=== PATIENT | female | born 1985 ===

== ENCOUNTER 2021-07-08 06:10 | Emergency (ER) | payer BC ==
--- OUTSIDE RECORDS SUMMARY | 2021-07-08 06:14 | XMS REPORT | Continuity of Care Document ---
:1985 Author Organization [facility] t Address [address] [place] [address] [address] [place] [address] Care Team Providers Name Role Phone Ariel Chapa Attending Clinician Doctor Unassigned, Name Attending Clinician Unavailable Payers Payer Name Policy Type Policy Number Effective Date Expiration Date S ayanna [facility] [id number] 2018 00:00:00 Problems Condition Condition Condition Status Onset Resolution Last Treating Co mments Source Name Details Category Date Date Treatment Clinician Date Migraine Migraine Disease Active Unive rs without without 06-01 ity of aura and aura and 00:00: [place] without without 00 Medical status status Branch migrainosu migrainosu s, not s, not intractabl intractabl e e Anxious Anxious Disease Active Univers mood mood 3- ity of 00:00: [place] 00 [facility] Sleep Sleep Disease Active Univers disturbanc disturbanc 3 it y of e e 00:00: [address] Allergies, Adverse Reactions, Alerts Allergy Allergy Status Severity Reaction(s) Onset Inactive Treating Comm ents Source Name Type Date Date Clinician NO KNOWN Drug Active Univers ALLERGIE Class ity of S [facility] Social History Social Habit Start Date Stop Date Quantity Comments Source Exposure to Yes [facility] SARS-CoV-2 [facility] (event) Branch Sex Assigned At Universit y of [facility] Alcohol intake 2018-06-22 2018-06-22 University of 00:00:00 00:00:00 [facility] Alcohol Comment 2018-06-01 2018-06-01 social drinker ( Uni versity of 00:00:00 00:00:00 wine ) [facility] Smoking Status Start Date Stop Date Source Never smoker [facility] Medications Ordered Filled Start Stop Current Ordering Indication Dosage Frequency Signature Comments Components Source Medication Medication Date Date Medication? Clinician (SIG) Name Name iohexol 2019- 2020- No 120mL 120 mL, Unive rs (OMNIPAQUE 09-13 Intravenou it y of 350 05:30: 05:10 s, ONCE, 1 [place] BULK-150 00 :00 dose, [place] Medica l mL) 09/14/19 at Branch injection 0030, 120 mL Routine ondansetron 2019- No 4mg 4 mg, Slow Univers (ZOFRAN 09-13 IV Push, ity of (PF)) 05:00: 04:11 ONCE, 1 [place] injection 4 00 :00 dose, [place] Med ical mg 09/14/19 at Branch 0000, JOSE ketorolac 2019-2019- No 30mg 30 mg, Unive rs (TORADOL) 09-13 Slow IV ity of injection 05:00: 04:11 Push, [place] 30 mg 00 :00 ONCE, 1 Medical dose, [place] Branch 09/14/19 at 0000, JOSE
Fa culty member approving Restricted medication : BERNIE MUNSON ketorolac 2019-0 Yes [id number] 10mg Take 1 Un chuck 10 mg 7-09 tablet by ity of tablet 00:00: mouth [place] 00 every 6 Medical (six) Branch hours as needed for Pain (scale 4-6). ondansetron 2019-0 Yes [id number] 8mg Take 1 Univers (ZOFRAN -09 tablet by ity of ODT) 8 mg 00:00: mouth [place] disintegrat 00 every 8 Medic al ing tablet (eight) Branch hours as needed for Nausea and Vomiting (N/V). amitriptyli Yes [id number] 37.5mg Take 1.5 Univers ne 25 mg 4-17 tablets by ity o f tablet 00:00: mouth at [place] 00 bedtime. Medical Branch hydrOXYzine Yes [id number] 25mg Take 1 Univers 25 mg 4-17 tablet by ity of tablet 00:00: mouth [place] 00 every 6 Medical (six) Branch hours as needed for Anxiety. amitriptyli Yes [id number] 37.5mg Take 1.5 Univers ne 25 mg 4-17 tablets by ity o f tablet 00:00: mouth at [place] 00 bedtime. Medical Branch hydrOXYzine Yes [id number] 25mg Take 1 Univers 25 mg 4-17 tablet by ity of tablet 00:00: mouth [place] 00 every 6 Medical (six) Branch hours as needed for Anxiety. norgestimat Yes 1{tbl} Take 1 Un chuck e-ethinyl 3-27 tablet by ity o f estradiol 16:16: mouth [place] 0.18/0.215/ 18 daily. Medica l 0.25 mg-35 Branch mcg (28) tablet norgestimat Yes 1{tbl} Take 1 Un chuck e-ethinyl 3-27 tablet by ity o f estradiol 16:16: mouth [place] 0.18/0.215/ 18 daily. Medica l 0.25 mg-35 Branch mcg (28) tablet Vital Signs Vital Name Observation Time Observation Value Comments Source Systolic blood 2019-09-14 05:00:00 118 mm[Hg] [facility] Diastolic blood 2019-09-14 05:00:00 83 mm[Hg] [facility] Heart rate 2019-09-14 05:00:00 66 /min [facility] Respiratory rate 2019-09-14 05:00:00 18 /min [facility] Oxygen saturation in 2019-09-14 05:00:00 99 /min [facility] Arterial blood by [facility] [place] [facility] Pulse oximetry [place] Body temperature 2019-09-14 03:13:00 36.56 [facility] Body weight 2019-09-14 03:13:00 77.111 kg [facility] BMI 2019-09-14 03:13:00 25.10 kg/m2 [facility] Procedures Procedure Date / Time Performing Clinician Source Performed POCT TEST 2019-09-14 04:11:00 Bernie Munson [facility] LIPASE 2019-09-14 03:41:00 Bernie Munson [facility] COMP. METABOLIC PANEL 2019-09-14 03:41:00 Bernie Munson [facility] ([id number]) [facility] CBC WITH DIFFERENTIAL 2019-09-14 03:41:00 Bernie Munson [facility] URINALYSIS 2019-09-14 03:41:00 Bernie Munson [facility] ASSIGNMENT OF BENEFITS 2019-09-14 03:07:53 Doctor Unassigned, No [facility] NOTICE OF PRIVACY 2019-09-14 03:05:48 Doctor Unassigned, No [facility] CONSENT/REFUSAL FOR 2019-09-14 03:05:36 Doctor Unassigned, No [facility] DIAGNOSIS AND TREATMENT [facility] Encounters Start End Encounter Admission Attending Care Care Encounter Source Date/Time Date/Time Type Type Clinicians Facility Department ID 2021-01-03 Emergency [facility] [id number] Univers 05:39:45 ity of [facility] 2019-09-13 2019-09-14 Emergency ESTELLA Munson [id number] Univers 22:17:46 01:09:00 Bernie Erickson [id number] i ty [facility] [id number] [facility] [id number] [place] [address] Branch 2019-09-13 2019-09-13 Orders Doctor LINDSAY [id number] Univers 00:00:00 00:00:00 Only UnassignedJORGE [id number] ity of [place] [facility] [id number] [facility] [id number] [facility] 009 Branch Results Test Description Test Time Test Comments Results Result Comments Source Urinalysis 2019-09-14 04:36:00 Test Item Value Reference Range Interpretation Comme nts APPEARANCE (test code = Cloudy Clear A 6452148161) COLOR (test code = 7207232921) Yellow Yellow PH (test code = 3370418743) 4.8-8.0 SP GRAVITY (test code = 1.003-1.030 7961666949) GLU U QUAL (test code = Normal Normal 0133305233) BLOOD (test code = 1144117195) Negative Negative INTERFERENCE FROM ASCORBIC ACID MAY CAUSE FALSE NEGATIVE RESULT KETONES (test code = 4586928407) 5 mg/dL Negative A PROTEIN (test code = 2887-8) Negative Negative UROBILIN (test code = Normal Normal 0768966500) BILIRUBIN (test code = Negative Negative 6742456551) NITRITE (test code = 2847274452) Negative Negative LEUK ATILIO (test code = Negative Negative 0452998326) RBC/HPF (test code = 2682579305) See_Comment [Automated message] The system which ge nerated this result transmit royal reference range: 0 - 3 HP F. The reference range was not used to interpret th is result as normal/abnormal . WBC/HPF (test code = 8813133592) See_Comment [Automated message] The system which ge nerated this result transmit royal reference range: 0 - 5 HP F. The reference range was not used to interpret th is result as normal/abnormal . BACTERIA (test code = Few Negative A 5211381006) MUCOUS (test code = 6287987700) Slight Negative LPF A SQ EPITH (test code = HPF 2851160356) CA OXALATE (test code = >182 See_Comment H [Au tomated message] The 4095630659) system which ge nerated this result transmit royal reference range: <=1 HPF. The reference range was not u sed to interpret this result as normal/abnormal . Lab Interpretation (test code = Abnormal 48640-3) [facility] [facility] [id number] 04:11:00 Test Item Value Reference Range Interpretation Comments POCT PREG (test code = 1605) negative On board controls acceptable with present C Line (test code = 3574) POCT PREG LOT # (test code = 3575) [id number] POCT PREG TEST DATE (test 10/05/2020 code = 3576) Lab Interpretation (test code = Normal 34949-8) [facility] [facility] Metabolic [id number] 04:06:00 Test Item Value Reference Range Interpretation Comments NA (test code = 137 mmol/L 135-145 0531006661) K (test code = 3.5 mmol/L 3.5-5 1573639512) CL (test code = 106 mmol/L 98-108 2629486330) CO2 TOTAL (test code = 22 mmol/L 23-31 L 6621700124) AGAP (test code = 2-16 4317210996) BUN (test code = 12 mg/dL 7-23 5130864509) GLUCOSE (test code = 96 mg/dL 70-110 2102421387) CREATININE (test code = 0.91 mg/dL 0.5-1.04 7505465647) TOTAL BILI (test code = 0.5 mg/dL 0.1-1.2 0302548988) CALCIUM (test code = 9.4 mg/dL 8.6-10.6 4526261099) T PROTEIN (test code = 7.4 g/dL 6.3-8.2 5734148264) ALBUMIN (test code = 4.4 g/dL 3.5-5 7618440050) ALK PHOS (test code = 47 U/L 34-122 7462634098) ALTv (test code = 22 U/L 5-35 1742-6) AST(SGOT) (test code = 31 U/L 13-40 6313296028) eGFR Calculation mL/min/1.73m2 (Non-) (test code = 8831183114) eGFR Calculation mL/min/1.73m2 () (test code = 4216060001) CHRIS (test code = CHRIS) Association of Glomerular Filtration Rate (GFR) and Staging of Kidney Disease* + --+ --+ ------+| GFR (mL/min/1.73 m2) ?| With Kidney Damage ?| ?Without Kidney Damage+ --------+ --------+ +| ?>90 ?| ?Stage one ?| ? Normal ?+ ---+ ---+ -------+| ?60-89 ?| ?Stage two ?| ? Decreased GFR ? + --+ --+ ------+| ?30-59 ?| ?Stage three ?| ? Stage three ? + --+ --+ ------+| ?15-29 ?| ?Stage four ? | ? Stage four ?+ ---+ ---+ -------+| ?<15 (or dialysis) ? ?| ?Stage five ? | ? Stage five ?+ ---+ ---+ -------+ *Each stage assumes the associated GFR level has been in effect for at least three months. ?Stages 1 to 5, with or without kidney disease, indicate chronic kidney disease. Notes: Determination of stages one and two (with eGFR >59mL/min/1.73 m2) requires estimation of kidney damage for at least three months as defined by structural or functional abnormalities of the kidney, manifested by either:Pathological abnormalities or Markers of kidney damage (including abnormalities in the composition of the blood or urine or abnormalities in imaging tests). Lab Interpretation Abnormal (test code = 38679-7) [facility] [facility] CenterLip[facility], [id number] 04:06:00 Test Item Value Reference Range Interpretation Comments LIPASE (test code = 7182763066) 41 U/L 0-220 Lab Interpretation (test code = Normal 88860-4) [facility] [facility] WITH [id number] 03:55:00 Test Item Value Reference Range Interpretation Comments WBC (test code = See_Comment [Automated 7390-2) message] The sy stem which generated this result transmitted reference range : 4.30 - 11.10 10*3/?L. The reference range was not used to interpret this result as normal/abnormal . RBC (test code = See_Comment [Automated 789-8) message] The sy stem which generated this result transmitted reference range : 3.93 - 5.25 10*6/?L. The reference range was not used to interpret this result as normal/abnormal . HGB (test code = 13.6 g/dL 11.6-15 718-7) HCT (test code = 40.2 % 35.7-45.2 4544-3) MCV (test code = 94.6 fL 80.6-95.5 787-2) MCH (test code = 32.0 pg 25.9-32.8 785-6) MCHC (test code = 33.8 g/dL 31.6-35.1 786-4) RDW-SD (test code = 41.4 fL 39-49.9 14986-4) RDW-CV (test code = 11.9 % 12-15.5 L 788-0) PLT (test code = See_Comment [Automated 777-3) message] The sy stem which generated this result transmitted reference range : 166 - 358 10*3/ ?L. The reference r zaid was not used to interpret this result as normal/abnormal . MPV (test code = 10.4 fL 9.5-12.9 51687-7) NRBC/100 WBC (test See_Comment [Automat ed code = 2038613210) message] The system which generated this result transmitted reference range : 0.0 - 10.0 /100 WBCs. The refer ence range was not u sed to interpret th is result as normal/abnormal . NRBC x10^3 (test code <0.01 See_Comment [Auto mated = 8759516401) message] The s ystem which generated this result transmitted reference range : 10*3/?L. The reference range was not used to interpret this result as normal/abnormal . GRAN MAT (NEUT) % 47.3 % (test code = 770-8) IMM GRAN % (test code 0.20 % = 4806961087) LYMPH % (test code = 27.7 % 736-9) MONO % (test code = 7.2 % 5905-5) EOS % (test code = 16.7 % 713-8) BASO % (test code = 0.9 % 706-2) GRAN MAT x10^3(ANC) 3.83 10*3/uL 1.88-7.09 (test code = 9476109880) IMM GRAN x10^3 (test <0.03 0-0.06 code = 0552897588) LYMPH x10^3 (test code 2.24 10*3/uL 1.32-3.29 = 731-0) MONO x10^3 (test code 0.58 10*3/uL 0.33-0.92 = 742-7) EOS x10^3 (test code = 1.35 10*3/uL 0.03-0.39 H 711-2) BASO x10^3 (test code 0.07 10*3/uL 0.01-0.07 = 704-7) Lab Interpretation Abnormal (test code = 09413-8) [facility]"
[2021-07-08] MEDS ORDERED: ONDANSETRON 4 MG/2 ML VIAL ONE (08:09)
[2021-07-08] MEDS ORDERED: NA CHLORIDE 0.9% 1,000 ML ONE (08:10)
[2021-07-08 08:13] LABS: Absolute Lymphocytes (CBC) 0.3 K/uL (0.7-4.9); Hematocrit 38.7 % (36.0-45.0); Lymphocytes % 9.6 % (15.3-44.8); MPV 7.4 fL (7.6-11.3); RBC Red Blood Cell Count 4.05 M/uL (3.86-4.86)
[2021-07-08 08:32] LABS: Albumin 3.2 g/dL (3.4-5.0); Bilirubin Total 0.4 mg/dL (0.2-1.0); Protein, Total 6.4 g/dL (6.4-8.2)
[2021-07-08 08:38] LABS: Potassium 3.1 mmol/L (3.5-5.1)
[2021-07-08 08:46] LABS: Blood Morphology Comment NOT SEEN (NOT SEEN); Platelet Estimate ADEQ; White Blood Cell Scan OK (OK)
[2021-07-08 09:25] LABS: Urine Blood Negative (Negative); Urine Glucose Negative (Negative); Urine Protein Negative (Negative); Urine pH 5.5 (5.0-7.0)
[2021-07-08] MEDS ORDERED: KCL 20 MEQ/100 mL IVPB 100 ML IV ONE (09:31)
[2021-07-08] MEDS ORDERED: NA CHLORIDE 0.9% 250 ML ONE (09:31)
--- NOTE | 2021-07-08 09:57 | RAD REPORT ---
EXAM DESCRIPTION: CTAbdomen Pelvis W Contrast - 07/08/2021 9:33 am CLINICAL HISTORY: Abdominal pain. Abdominal pain, acute, nonlocalized COMPARISON: No comparisons TECHNIQUE: Biphasic CT imaging of the abdomen and pelvis was performed with 100 ml non-ionic IV cont rast. All CT scans are performed using dose optimization technique as appropriate and may include automated exposure control or mA/KV adjustment according to patient size. FINDINGS: The lung bases are clear. The liver, spleen, pancreas, adrenal glands and kidneys are within normal limits. No bowel obstruction, free air, free fluid or abscess. The appendix is not identified as a discrete structure, however, no secondary findings of appendicitis are identified. No evidence of significan t lymphadenopathy. No suspicious bony findings. IMPRESSION: No acute intra-abdominal or pelvic finding.
--- NOTE | 2021-07-08 10:17 | ER ---
Nurse's Notes [facility] Name: Jocelyne Mensah Age: 36 yrs Sex: Female : 1985 Arrival Date: 07/08/2021 Time: 06:19 Bed 12 Private MD: Diagnosis: Nausea with vomiting, unspecified;Diarrhea, unspecified Presentation: 07/08 06:27 Chief complaint: Patient states: she has had diarrhea, nausea, vomiting with back and bb abdominal pain x 5 days has had approx 3 episodes of diarrhea an hour. Coronavirus screen: At this time, the client does not indicate any symptoms associated with coronavirus-19. Ebola Screen: No symptoms or risks identified at this time. Initial Sepsis Screen: Does the patient meet any 2 criteria? No. Patient's initial sepsis screen is negative. Does the patient have a suspected source of infection? No. Patient's initial sepsis screen is negative. Risk Assessment: Do you want to hurt yourself or someone else? Patient reports no desire to harm self or others. Onset of symptoms was July 04, 2021. 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 - Social history:: Smoking status: Patient denies any tobacco usage or history of. Patient uses alcohol, occasionally. - Family history:: not pertinent. - Hospitalizations: : No recent hospitalization is reported. Screenin:31 Abuse screen: Denies threats or abuse. Denies injuries from another. Nutritional ss screening: No deficits noted. Tuberculosis screening: Never had TB. Fall Risk None identified. Assessment: 09:45 Reassessment: Pt back from CT at this time VIA wheelchair. Potassium infusion infusing. ss Call light within reach. Pt remains on monitors. Pt is requesting ibuprofen for back pain. Will let Dr. Reagan know. 10:31 Reassessment: Awaiting for potassium infusion to complete prior to discharge. ss Vital Signs: 06:27 BP 114 / 81; Pulse 106; Resp 16 S; Temp 98.7(O); Pulse Ox 99% on R/A; Weight 79.38 kg bb (R); Height 5 ft. 9 in. (175.26 cm) (R); Pain 8/10; 06:27 Body Mass Index 25.84 (79.38 kg, 175.26 cm) ED Course: 06:19 Patient arrived in ED. kz 06:30 Triage completed. bb 06:30 Arm band placed on Patient placed in waiting room, Patient notified of wait time. bb 07:04 Janak Reagan MD is Attending Physician. rn 08:52 Francisco Harper RN is Primary Nurse. 1 09:00 Inserted saline lock: 20 gauge in right antecubital area, using aseptic technique. ,using aseptic technique. Insertion by Vicky mail technician Blood collected. 09:30 Patient has correct armband on for positive identification. Bed in low position. Side ss rails up X 1. 09:35 CT Abd/Pelvis - IV Contrast Only In Process Unspecified. EDMS 10:31 No provider procedures requiring assistance completed. ss Administered Medications: 08:05 Drug: NS 0.9% 1000 ml Route: IV; Rate: 1 bolus; Site: right antecubital; ll1 08:06 Drug: Zofran (Ondansetron) 4 mg Route: IVP; Site: right antecubital; ll1 09:44 Follow up: Response: No adverse reaction 09:43 Drug: Potassium Chloride 20 mEq Route: IV; Rate: calculated rate; Site: right ss antecubital; 10:27 Drug: LoMOTIL (diphenoxylate-atropine) 2 tabs Route: PO; 10:28 Drug: Ibuprofen 800 mg Route: PO; Outcome: 09:30 Discharged to 09:30 Condition: good 09:30 Demonstrated understanding of instructions, follow-up care. 10:17 Discharge ordered by . rn 11:19 Patient left the ED. 5 Signatures: Dispatcher [employer] EDMS Deana Staley RN Janak Chavez MD MD rn Smirch, Shelby, RN RN ss Martinez, Maria [facility] Francisco Harper RN RN [facility] Yasmine Hopper
--- NOTE | 2021-07-08 10:17 | EDPHYS ---
Physician Documentation [facility] Name: Jocelyne Mensah Age: 36 yrs Sex: Female : 1985 Arrival Date: 07/08/2021 Time: 06:19 Bed 12 Private MD: ED Physician Janak Reagan HPI: 07/08 08:29 This 36 yrs old Female presents to ER via Ambulatory with complaints of rn Vomiting/Diarrhea. 08:29 The patient presents to the emergency department with nausea, vomiting, diarrhea, rn abdominal pain. Onset: The symptoms/episode began/occurred 5 day(s) ago. Possible causes: unknown. The symptoms are aggravated by nothing. The symptoms are alleviated by nothing. Associated signs and symptoms: Pertinent positives: abdominal pain, diarrhea, nausea, vomiting, Pertinent negatives: fever, GI bleeding. Severity of symptoms: At their worst the symptoms were moderate in the emergency department the symptoms are unchanged. The patient has not experienced similar symptoms in the past. The patient has not recently seen a physician. 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 - Social history:: Smoking status: Patient denies any tobacco usage or history of. Patient uses alcohol, occasionally. - Family history:: not pertinent. - Hospitalizations: : No recent hospitalization is reported. ROS: 08:29 Constitutional: Negative for fever, and weight loss, Eyes: Negative for injury, pain, rn redness, and discharge, Neck: Negative for injury, pain, and swelling, Cardiovascular: Negative for chest pain, palpitations, and edema, Respiratory: Negative for shortness of breath, cough, wheezing, and pleuritic chest pain, Abdomen/GI: Negative for constipation, Back: Negative for injury and pain, : Negative for injury, bleeding, discharge, and swelling, MS/Extremity: Negative for injury and deformity, Skin: Negative for injury, rash, and discoloration, Neuro: Negative for headache, numbness, tingling, and seizure. Exam: 08:29 Constitutional: This is a well developed, well nourished patient who is awake, alert, rn and in no acute distress. Head/Face: Normocephalic, atraumatic. Eyes: Pupils equal round and reactive to light, extra-ocular motions intact. Lids and lashes normal. Conjunctiva and sclera are non-icteric and not injected. Cornea within normal limits. Periorbital areas with no swelling, redness, or edema. ENT: Mucous membranes Cardiovascular: Rate, regular. No pulse deficits Respiratory: No increased work of breathing, no retractions or nasal flaring. Abdomen/GI: Soft, mild tenderness bilateral lower quadrants, no rebound Back: No spinal tenderness. No costovertebral tenderness. Full range of motion. Skin: Warm, dry MS/ Extremity: Pulses equal, no cyanosis. Neuro: Awake and alert, GCS 15 Vital Signs: 06:27 BP 114 / 81; Pulse 106; Resp 16 S; Temp 98.7(O); Pulse Ox 99% on R/A; Weight 79.38 kg bb (R); Height 5 ft. 9 in. (175.26 cm) (R); Pain 8/10; 06:27 Body Mass Index 25.84 (79.38 kg, 175.26 cm) bb MDM: 07:04 Patient medically screened. rn 10:16 Differential diagnosis: Nonspecific abd pain, gastritis, cholecystitis, pancreatitis, rn appendicitis, diverticulitis, viral gastroenteritis, gastroenteritis. Data reviewed: vital signs, nurses notes, lab test result(s), radiologic studies, CT scan, and as a result, I will discharge patient. Counseling: I had a detailed discussion with the patient and/or guardian regarding: the historical points, exam findings, and any diagnostic results supporting the discharge/admit diagnosis, lab results, radiology results, the need for outpatient follow up, to return to the emergency department if symptoms worsen or persist or if there are any questions or concerns that arise at home. Response to treatment: the patient's symptoms have mildly improved after treatment, and as a result, I will discharge patient. Special discussion: Based on the patient's Hx, exam, and Dx evaluation, there is no indication for emergent surgery or inpatient Tx. It is understood by the patient/guardian that if the Sx's persist or worsen they need to return immediately for re-evaluation. I discussed with the patient/guardian in detail that at this point there is no indication for admission to the hospital. It is understood, however, that if the symptoms persist or worsen the patient needs to return immediately for re-evaluation. ED course: No acute findings on CT abdomen, improved with fluids and lomotil. Will dc home with OTC diarrhea medication and prn zofran. . 07/08 07:06 Order name: CBC with Diff; Complete Time: 08:48 rn 07/08 07:06 Order name: CMP; Complete Time: 08:48 rn 07/08 07:06 Order name: Lipase; Complete Time: 08:48 rn 07/08 08:18 Order name: CBC Smear Scan; Complete Time: 08:48 EDMS 07/08 09:25 Order name: Urine Dipstick-Ancillary; Complete Time: 09:59 EDMS 07/08 09:26 Order name: Urine --Ancillary (enter results); Complete Time: 09:59 bd 07/08 07:06 Order name: CT Abd/Pelvis - IV Contrast Only; Complete Time: 09:59 rn 07/08 07:06 Order name: IV Saline Lock; Complete Time: 08:03 rn 07/08 07:06 Order name: Labs collected and sent; Complete Time: 08:03 rn 07/08 07:06 Order name: Urine Test (obtain specimen); Complete Time: 09:44 rn Administered Medications: 08:05 Drug: NS 0.9% 1000 ml Route: IV; Rate: 1 bolus; Site: right antecubital; ll1 08:06 Drug: Zofran (Ondansetron) 4 mg Route: IVP; Site: right antecubital; ll1 09:44 Follow up: Response: No adverse reaction ss 09:43 Drug: Potassium Chloride 20 mEq Route: IV; Rate: calculated rate; Site: right ss antecubital; 10:27 Drug: LoMOTIL (diphenoxylate-atropine) 2 tabs Route: PO; ss 10:28 Drug: Ibuprofen 800 mg Route: PO; ss Disposition Summary: 07/08/21 10:17 Discharge Ordered Location: Home rn Problem: new rn Symptoms: have improved rn Condition: Stable rn Diagnosis - Nausea with vomiting, unspecified rn - Diarrhea, unspecified rn Followup: rn - With: Private Physician - When: As needed - Reason: Recheck today's complaints, Re-evaluation by your physician Discharge Instructions: - Discharge Summary Sheet rn - Diarrhea, Adult rn - Nausea and Vomiting, Adult rn Forms: - Medication Reconciliation Form rn - Thank You Letter rn - Antibiotic furnace combustion tester - Prescription Opioid Use rn Prescriptions: - ondansetron 4 mg Oral tablet,disintegrating - take 1 tablet by ORAL route every 8 hours As needed; 15 tablet; Refills: 0, rn Product Selection Permitted Signatures: Dispatcher [employer] Deana Tariq RN RN Janak Pritchett MD MD rn Smirch, Shelby, RN RN ss Lewis, Lynsay RN RN ll1
[2021-07-08] MEDS ORDERED: IBUPROFEN 400 MG TAB ONE (10:30)
[2021-07-08] MEDS ORDERED: DIPHENOX/ATROP SULF 1 TAB PO ONE (10:30)
[2021-07-08 11:28] VITALS: BP 114/81; TEMP 98.7; O2SAT 99
== END 2021-07-08 11:19 | disposition home or self-care (01) ==
LOC: ER 06:10
DX: R11.2 Nausea with vomiting, unspecified (principal); R19.7 Diarrhea, unspecified; F32.A Depression, unspecified
CPT/HCPCS: 85025; 36415; 81025; 81003; 83690; 80053; 74177; Q9967; J3480; J7050; J7030; J2405; 96374; 96375; 99284